=== PATIENT | female | born 1955 | race Caucasian/White ===

== ENCOUNTER 2024-11-02 09:31 | Emergency (ER) | payer MEDICAID ==
[~2024-11-02] VITALS: Ht 165.1 cm; Wt 59.0 kg
[2024-11-02 09:34] VITALS: BP 190/80; PULSE 80; RESP 20; TEMP 36.7; O2SAT 99
[2024-11-02 10:09] VITALS: O2SAT 100
[2024-11-02] MEDS ORDERED: TOPUD PO (11:02)
== END 2024-11-02 12:03 | disposition home or self-care (01) ==
LOC: ER 09:31
DX: M79.605 Pain in left leg (principal); E11.9 Type 2 diabetes mellitus without complications; I10 Essential (primary) hypertension; N28.9 Disorder of kidney and ureter, unspecified; W01.0XXA Fall on same level from slipping, tripping and stumbling without subsequent striking against object, initial encounter; Y93.89 Activity, other specified; Y92.89 Other specified places as the place of occurrence of the external cause; Y99.8 Other external cause status
CPT/HCPCS: 73590; 82962; 99283